=== PATIENT | male | born 1960 | race Hispanic/Latino ===

== ENCOUNTER 2024-12-12 09:36 | Day surgery (SDC) | payer OTHER ==
[2024-12-11 16:22] LABS: Absolute Lymphocytes (CBC) 2.0 K/uL (0.7-4.9); Hematocrit 45.2 % (39.6-49.0); Hemoglobin 15.4 g/dL (13.6-17.9); MCH 32.0 pg (27.0-35.0); MCHC 34.0 g/dL (32.0-36.0); MCV 93.9 fL (80-100); MPV 8.3 fL (7.6-11.3); Nucleated RBC Absolute Count 0.0 (0-0); Nucleated Red Blood Cells % 0.0 % (0-0); RBC Red Blood Cell Count 4.81 M/uL (4.33-5.43); White Blood Count 8.40 thou/uL (4.3-10.9)
[2024-12-11 16:45] LABS: Anion Gap 8.0 mEq/L (5.0-15.0); BUN Blood Urea Nitrogen 18.0 mg/dL (7-18); Glucose Level 106.0 mg/dL (74-106); Potassium 4.0 mEq/L (3.5-5.1)
[2024-12-12] MEDS ORDERED: NA CHLORIDE 0.9% 1,000 ML ONE (10:23)
[2024-12-12] MEDS ORDERED: FENTANYL CITR 100 MCG/2 ML ONE (10:49)
[2024-12-12] MEDS ORDERED: LIDOCAINE 1% MPF 5 ML VIAL ONE (10:49)
[2024-12-12] MEDS ORDERED: MIDAZOLAM HCL 2 MG/2 ML INJ ONE (10:49)
[2024-12-12] MEDS ORDERED: SUCCINYLCHOLINE 200 MG/10 ML 200 MG/10 ML SYR IV ONE (10:49)
[2024-12-12] MEDS ORDERED: ROCURONIUM 50 MG/5 ML VIAL IV ONE (10:52)
[2024-12-12] MEDS: CEFAZOLIN SODIUM 2 GM/VIAL ONE (11:13)
[2024-12-12] MEDS: LIDOCAINE HCL/EPINEPHRINE 20 ML MDV ONE (11:17)
[2024-12-12] MEDS ORDERED: ONDANSETRON 4 MG/2 ML VIAL ONE (12:15)
[2024-12-12] MEDS ORDERED: Phenylephrine HCl 10 MG/ML 1 ML VIAL ONE (12:34)
--- NOTE | 2024-12-12 12:43 | P.OP ---
Preoperative diagnosis: RIGHT Posterior Shoulder cyst with abscess Postoperative diagnosis: RIGHT Posterior Shoulder cyst with abscess Primary procedure: Wide Excision of RIGHT Posterior Shoulder cyst with abscess Anesthesia: GETA + Local Estimated blood loss: <5cc Specimen: Cultures, infected sebaceous cyst Findings: ~ 5cm x 4 cm x 3 cm into adipose RIGHT Posterior Shoulder cyst with abscess Complications: None Transferred to: Recovery Room Condition: Good
[2024-12-12] MEDS: HYDROMORPHONE HCL 0.5 MG/0.5 ML INJ ONE ×2 (13:05→13:12)
[2024-12-12] MEDS: HYDROCODONE/APAP 5/325 MG TAB ONE (13:47)
[2024-12-12 14:41] VITALS: BP 130/76; TEMP 97.9; O2SAT 98
--- NOTE | 2024-12-12 21:20 | OP ---
Date of Procedure: 12/12/2024 Surgeon: Evan Gonsalez MD, Preoperative Diagnosis: Right shoulder infected sebaceous cyst with abscess. Postoperative Diagnosis: Right shoulder infected sebaceous cyst with abscess. Procedure Performed: Wide local excision of right posterior shoulder infected sebaceous cyst with ab scess. Anesthesia: General endotracheal plus local, 1% lidocaine with epinephrine. Estimated Blood Loss: Less than 5 cc. Specimens: Culture sent both for aerobic and anaerobic speciation. Infected sebaceous cyst was sent in its entirety. Findings: A 5 cm x 4 cm x 3 cm infected right sebaceous cyst of the shoulder was sent in its entiret y, extended into the adipose tissue. Complications: None. Disposition: The patient was transferred to recovery room in good condition. Procedure In Detail: After informed consent was obtained, the patient was prepped and draped in the usual sterile fashion. After adequate anesthesia was achieved, I made a curvilinear incision circumf erentially around this infected sebaceous cyst of the right posterior shoulder area down to the subcu taneous tissues. Electrocautery was used to remove the cyst in its entirety. Culture sent both for aerobic and anaerobic speciation. Some murky abscess type material was emanating from there. All no nviable tissue was removed. The area was copiously irrigated multiple times. Hemostasis was achieve d with electrocautery. The wound was then partially reapproximated with 3-0 nylon sutures and then p acked with Vashe on Kerlix and a sterile dressing was placed over top. The patient tolerated the pro cedure without incident or complication, transferred to PACU in good condition. All counts were srini ect at the end of the case. DAMION/JUAN Voice ID: [id number] Report ID: [id number]
== END 2024-12-12 14:35 | disposition home or self-care (01) ==
LOC: OR 09:36
PROVIDERS: ATTEND Surgery
PROC: 0JBD0ZZ Excision of Right Upper Arm Subcutaneous Tissue and Fascia, Open Approach (ICD-10-PCS; principal; 2024-12-12 12:00)
DX: L72.0 Epidermal cyst (principal)
CPT/HCPCS: 93005; 87070; 85025; 80048; 36415; 87205 ×2; 82947 ×2; 88304; 87075; 11406; J2704; J2003; J2371; J2250; J3010; J1171 ×2; J2405; J7030; J0330